=== PATIENT | male | born 1965 | race American Indian/Alaskan Native ===

== ENCOUNTER 2016-08-07 11:37 | Emergency (ER) | payer BC ==
[2016-08-07 11:38] VITALS: BMI 38.0
[2016-08-07 11:43] VITALS: RESP 18; TEMP 98; O2SAT 98
--- NOTE | 2016-08-07 12:55 | C.PDOC ---
History Of Present Illness 51 y/o male presents to the ED with complains of left foot pain. Pt states he hit left foot against object yesterday and has since had pain to 1st metatarsal joint area with redness. Pt denies history of arthritis or gout. Chief Complaint (Nursing): Lower Extremity Problem/Injury History Per: Patient History/Exam Limitations: no limitations Onset/Duration Of Symptoms: Hrs Current Symptoms Are (Timing): Still Present Severity: Moderate Recent travel outside of the [place]: No - Ankle/Foot Description Of Injury: Struck Against Object Past Medical History Reviewed: Historical Data, Nursing Documentation, Vital Signs Vital Signs: Last Vital Signs Temp 98.0 F 08/07/16 11:43 Pulse 85 08/07/16 13:13 Resp 18 08/07/16 13:13 BP 122/81 08/07/16 13:13 Pulse Ox 98 08/07/16 13:13 - Medical History PMH: Diabetes Family History: States: Unknown Family Hx Denies: [place], CAD - Social History Hx Tobacco Use: No Hx Alcohol Use: Yes Hx Substance Use: No - Immunization History Hx Tetanus Toxoid Vaccination: Yes Hx Influenza Vaccination: Yes Hx Pneumococcal Vaccination: No Review Of Systems Except As Marked, All Systems Reviewed And Found Negative. Constitutional: Negative for: Fever Musculoskeletal: Positive for: Other (pain to 1st metatarsal area) Neurological: Negative for: Weakness, Numbness Physical Exam - Physical Exam Appears: Non-toxic, No Acute Distress Skin: Warm, Dry, No Rash Head: Atraumatic, Normacephalic Extremity: Normal ROM, No Deformity (no obvious), Other (Tenderness, swelling and erythema to 1st MCP joint of left foot) Neurological/Psych: Oriented x3, Normal Speech, Normal Motor, Normal Sensation ED Course And Treatment O2 Sat by Pulse Oximetry: 98 (on room air) Pulse Ox Interpretation: Normal - Other Rad XR left foot X-Ray: Interpreted by Me, Viewed By Me Interpretation: some calcification seen, sesamoid bone. No fracture or dislocation - CT Scan/US Foot xray Other Rad Studies (CT/US): Read By Radiologist, Radiology Report Reviewed CT/US Interpretation: Accession No. : [id number]. Patient Name / ID : MARIO QUILES / [id number]. Exam Date : 08/07/2016 12:10:52 ( Approved ). Study Comment : Sex / Age : M / 51Y. Creator : CONOR BEYER. Dictator : Faraz Johnston MD. Food Safety Specialist : Manufacturing Tech : Faraz Johnston MD. Approver2 : Report Date : 08/07/2016 12:21:35. My Comment : . PROCEDURE: Left Foot Radiographs. HISTORY: hit 1st MTP joint yesterday, pain/swelling. COMPARISON: None. FINDINGS: BONES: No fracture. Small plantar surface calcaneal enthesophyte. Minor hallux valgus deformity with overgrowth of the head of the 1st metatarsal and mild DJD 1st MTP joint. Prominent soft tissues overlying head of the 1st metatarsal and 1st MCP joint. JOINTS: Mild degenerative changes tibiotalar articulation. SOFT TISSUES: Normal. OTHER FINDINGS: None. IMPRESSION: No fracture. Small plantar surface calcaneal enthesophyte. Minor hallux valgus deformity with overgrowth of the head of the 1st metatarsal and mild DJD 1st MTP joint. Prominent soft tissues overlying head of the 1st metatarsal and 1st MCP joint Medical Decision Making Medical Decision Making: XR left foot. Ortho shoe placed, Pt to follow up with scheduled direct sales consultant appointment next week. Disposition - Disposition Disposition: HOME/ ROUTINE Disposition Time: 12:56 Condition: STABLE Additional Instructions: Follow up with PMD and Dyer Assistant within 2-3 days. Return to ED if feel worse. Prescriptions: Ibuprofen [Motrin Tab] 600 mg PO Q8 #30 tab traMADol [Ultram] 50 mg PO Q6 #30 tab Instructions: Foot Contusion (ED) - Clinical Impression Clinical Impression: Foot contusion - PA / ABSTRACTOR / Resident Statement / has reviewed & agrees with the documentation as recorded. - Scribe Statement The provider has reviewed the documentation as recorded by the Shalom Quintanilla All medical record entries made by the Scribe were at my direction and personally dictated by me. I have reviewed the chart and agree that the record accurately reflects my personal performance of the history, physical exam, medical decision making, and the department course for this patient. I have also personally directed, reviewed, and agree with the discharge instructions and disposition.
--- NOTE | 2016-08-07 13:12 | RAD ---
PROCEDURE: Left Foot Radiographs. HISTORY: hit 1st MTP joint yesterday, pain/swelling COMPARISON: None. FINDINGS: BONES: No fracture. Small plantar surface calcaneal enthesophyte. Minor hallux valgus deformity with overgrowth of the head of the 1st metatarsal and mild DJD 1st MTP joint. Prominent soft tissues overlying head of the 1st metatarsal and 1st MCP joint JOINTS: Mild degenerative changes tibiotalar articulation SOFT TISSUES: Normal. OTHER FINDINGS: None. IMPRESSION: No fracture. Small plantar surface calcaneal enthesophyte. Minor hallux valgus deformity with overgrowth of the head of the 1st metatarsal and mild DJD 1st MTP joint. Prominent soft tissues overlying head of the 1st metatarsal and 1st MCP joint
[2016-08-07 13:15] VITALS: BP 122/81; PULSE 85
== END 2016-08-07 13:16 | disposition home or self-care (01) ==
LOC: C.ER 11:37
DX: S90.32XA Contusion of left foot, initial encounter (principal); W22.8XXA Striking against or struck by other objects, initial encounter; Y93.9 Activity, unspecified; Y92.9 Unspecified place or not applicable

== ENCOUNTER 2016-12-25 08:56 | Emergency (ER) | payer BC ==
[2016-12-25 08:57] VITALS: BMI 38.0
--- NOTE | 2016-12-25 09:28 | C.PDOC ---
History Of Present Illness 51 yr old male presents to the ER with complaints of bilateral groin pain for the past 2-3 weeks. Patient states the pain started after doing a strenuous workout. States the pain is worsened with movement and when he is stretches. Patient denies falls, nausea, vomiting, abdominal pain, dysuria, hematuria, back pain, weakness or numbness. Time Seen by Provider: 12/25/16 09:05 Chief Complaint (Nursing): Abdominal Pain History Per: Patient History/Exam Limitations: no limitations Onset/Duration Of Symptoms: Days (2-3 weeks) Past Medical History Reviewed: Historical Data, Nursing Documentation, Vital Signs Vital Signs: Last Vital Signs Temp 98.4 F 12/25/16 10:19 Pulse 89 12/25/16 10:19 Resp 20 12/25/16 10:19 BP 104/78 12/25/16 10:19 Pulse Ox 96 12/25/16 10:19 - Medical History PMH: Diabetes Family History: States: No Known Family Hx - Social History Hx Tobacco Use: No Hx Alcohol Use: No Hx Substance Use: No - Immunization History Hx Tetanus Toxoid Vaccination: Yes Hx Influenza Vaccination: No Hx Pneumococcal Vaccination: Yes Review Of Systems Except As Marked, All Systems Reviewed And Found Negative. Gastrointestinal: Negative for: Nausea, Vomiting, Abdominal Pain Genitourinary: Positive for: Other ((+) Bilateral groin pain). Negative for: Dysuria, Hematuria Musculoskeletal: Negative for: Back Pain Neurological: Negative for: Weakness, Numbness Physical Exam - Physical Exam Appears: Non-toxic, No Acute Distress Skin: Warm, Dry, No Rash Head: Atraumatic, Normacephalic Eye(s): bilateral: Normal Inspection Oral Mucosa: Moist Neck: Normal, Normal ROM, No Midline Cervical Tenderness, No Step Off Deformity , Supple Chest: Symmetrical, No Tenderness Cardiovascular: Rhythm Regular, No Friction Rub, No Murmur Respiratory: Normal Breath Sounds, No Rales, No Rhonchi, No Wheezing Gastrointestinal/Abdominal: Normal Exam, Soft, No Tenderness, No Guarding, No Rebound Back: Normal Inspection, No CVA Tenderness Extremity: No Calf Tenderness, Other ((+) Slight tenderness upon internal rotation of bilateral hips.) Neurological/Psych: Oriented x3, Normal Speech, Normal Motor, Normal Sensation Gait: Steady ED Course And Treatment O2 Sat by Pulse Oximetry: 98 (RA) Pulse Ox Interpretation: Normal Medical Decision Making Medical Decision Making: PLAN: * Motrin PO NOTE: * Patient instructed to take Motrin or Tylenol for pain. Instructed patient to rest for few days. * Patient is treated with Motrin PO in ED for pain. + * Patient is ambulatory in the ED with steady Disposition - Disposition Referrals: [facility] [Outside] Disposition: HOME/ ROUTINE Disposition Time: 10:14 Condition: GOOD Additional Instructions: Follow up with the medical doctor within 1-2 days, Return if worsened. Prescriptions: Naproxen [Naprosyn] 500 mg PO BID #20 tab Instructions: Muscle Strain (ED) Forms: [employer] (Jamaican) - Clinical Impression Clinical Impression: Muscle strain - PA / SKIVER UPPERS OR LININGS / Resident Statement MD/DO has reviewed & agrees with the documentation as recorded. - Scribe Statement The provider has reviewed the documentation as recorded by the Scribe Cass Coffman All medical record entries made by the Scribe were at my direction and personally dictated by me. I have reviewed the chart and agree that the record accurately reflects my personal performance of the history, physical exam, medical decision making, and the department course for this patient. I have also personally directed, reviewed, and agree with the discharge instructions and disposition.
[2016-12-25 10:20] VITALS: BP 104/78; PULSE 89; RESP 20; TEMP 98.4
[2016-12-25 11:09] VITALS: O2SAT 98
== END 2016-12-25 10:20 | disposition home or self-care (01) ==
LOC: C.ER 08:56
DX: S39.011A Strain of muscle, fascia and tendon of abdomen, initial encounter (principal); X58.XXXA Exposure to other specified factors, initial encounter; Y93.89 Activity, other specified

== ENCOUNTER 2017-05-15 22:40 | Emergency (ER) | payer BC ==
[2017-05-15 22:40] VITALS: BMI 38.0
[2017-05-15 22:52] VITALS: RESP 18; O2SAT 99
--- NOTE | 2017-05-15 23:18 | C.PDOC ---
Time Seen by Provider: 05/15/17 22:59 Chief Complaint (Nursing): Weakness/Neurological Deficit History Per: Patient Onset/Duration Of Symptoms: Days (2) Current Symptoms Are (Timing): Still Present Current Symptoms: Left facial weakness Severity: Moderate Additional History Per: Prior Records - Symptoms Of CVA Associated Symptoms: denies: Impaired Speech, Seizure Activity, New Vision Deficit(Left), New Vision Deficit(Right), Decreased Ability To Walk, New Confusion Character Of Deficits: Left: Weakness, Face: Weakness Recent Head Trauma: No Past Medical History Reviewed: Historical Data, Nursing Documentation, Vital Signs Vital Signs: Last Vital Signs Temp 98.3 F 05/15/17 22:49 Pulse 82 05/15/17 22:49 Resp 18 05/15/17 22:49 BP 128/87 05/15/17 22:49 Pulse Ox 99 05/15/17 22:49 - Medical History PMH: Diabetes Family History: States: Unknown Family Hx - Social History Hx Tobacco Use: No Hx Alcohol Use: No Hx Substance Use: No - Immunization History Hx Tetanus Toxoid Vaccination: Yes Hx Influenza Vaccination: No Hx Pneumococcal Vaccination: Yes Review Of Systems Except As Marked, All Systems Reviewed And Found Negative. Constitutional: Negative for: Fever, Weakness Eyes: Negative for: Vision Change ENT: Negative for: Ear Pain, Ear Discharge Cardiovascular: Negative for: Chest Pain Respiratory: Negative for: Shortness of Breath Gastrointestinal: Negative for: Nausea, Vomiting Skin: Negative for: Rash Neurological: Negative for: Numbness, Incoordination, Change in Speech, Confusion, Seizures, Altered Mental Status, Headache, Dizziness Physical Exam - Physical Exam Appears: Non-toxic, No Acute Distress Skin: Normal Color, Warm, Dry, No Rash Head: Atraumatic, Normacephalic Eye(s): bilateral: PERRL, EOMI Ear(s): Bilateral: Normal Throat: Normal Neck: Normal ROM, Supple Cardiovascular: Rhythm Regular Respiratory: Normal Breath Sounds, No Accessory Muscle Use Gastrointestinal/Abdominal: Soft, No Tenderness Back: No CVA Tenderness Extremity: Normal ROM Neurological/Psych: Oriented x3, Normal Speech, Normal Cognition, No Cerebellar Signs, Normal Sensation Gait: Steady Other Neurological Findings: Facial Palsy (left), No Forehead Sparing Extremity: Right: No Drift, Left: No Drift, Upper: No Drift, Lower: No Drift ED Course And Treatment O2 Sat by Pulse Oximetry: 99 Pulse Ox Interpretation: Normal Disposition Counseled Patient/Family Regarding: Diagnosis, Need For Followup, Rx Given - Disposition Referrals: Cm Guerrero MD [Staff Provider] - Disposition: HOME/ ROUTINE Disposition Time: 23:20 Condition: STABLE Additional Instructions: Follow up with your doctor within 1 week for further evaluation and treatment, including for checking Lyme disease titers. Return to the ER if you develop numbness, weakness in arms or legs, rash, fever, worsening of symptoms or if you have any other concerns. Prescriptions: Glycerin/Propylene Glycol [Artificial Tears Drops] 1 drop OP QID #1 bottle predniSONE [predniSONE Tab] 3 tab PO DAILY #15 tab Instructions: Siddiqui Palsy (ED) Forms: [employer] (Kinyarwanda) - Clinical Impression Clinical Impression: Left-sided Siddiqui's palsy
[2017-05-15 23:38] VITALS: BP 129/84; PULSE 78; TEMP 98.4
== END 2017-05-15 23:39 | disposition home or self-care (01) ==
LOC: C.ER 22:40
DX: G51.0 Bell's palsy (principal)

== ENCOUNTER 2017-05-16 13:56 | Emergency (ER) | payer BC ==
[2017-05-16 13:58] VITALS: BMI 38.0
[2017-05-16 15:23] VITALS: RESP 20; TEMP 98.5
--- NOTE | 2017-05-16 16:59 | CT ---
PROCEDURE: CT HEAD WITHOUT CONTRAST. HISTORY: Left facial weakness COMPARISON: No prior study available for comparison TECHNIQUE: Axial computed tomography images were obtained through the head/brain without intravenous contrast. Radiation dose: Total exam DLP = 982.82 mGy-cm. This CT exam was performed using one or more of the following dose reduction techniques: Automated exposure control, adjustment of the mA and/or kV according to patient size, and/or use of iterative reconstruction technique. FINDINGS: HEMORRHAGE: No acute parenchymal, subarachnoid nor extra-axial hemorrhage. BRAIN: No evidence large acute infarct. No obvious parenchymal nor extra-axial mass or collection seen on this noncontrast study. The possibility of hyperacute infarct cannot be excluded on this exam and if there is any concern consider followup emergent MRI. Mild age-appropriate volume loss. Mild vascular calcifications VENTRICLES: Unremarkable. No hydrocephalus. CALVARIUM: Unremarkable. PARANASAL SINUSES: Unremarkable as visualized. No significant inflammatory changes. MASTOID AIR CELLS: Unremarkable as visualized. No inflammatory changes. OTHER FINDINGS: None. IMPRESSION: No acute intracranial hemorrhage. No evidence of large acute infarct however the possibility of a small hyperacute infarct cannot excluded and therefore additional studies could be performed further if further evaluation required as detailed above.
--- NOTE | 2017-05-16 17:16 | C.PDOC ---
History Of Present Illness 52 y/o male presents to the ER complaining of a "rumbling" sensation in his ears and twitching on the left side of his face. Patient states that he was seen in [facility] yesterday and he was diagnosed with Siddiqui's Palsy. He was given a prescription for predniSONE. He states he has mild left facial paralysis for 3 days and he decided to come back to the ER today because of the sensation in his ears and twitching on his face. Patient denies having headache , dizziness, visual changes, neck pain, chest pain, palpitations, and fever. Time Seen by Provider: 05/16/17 15:21 Chief Complaint (Nursing): ENT Problem History Per: Patient History/Exam Limitations: no limitations Onset/Duration Of Symptoms: Hrs Current Symptoms Are (Timing): Still Present Severity: Moderate Past Medical History Reviewed: Historical Data, Nursing Documentation, Vital Signs Vital Signs: Last Vital Signs Temp 98.5 F 05/16/17 15:19 Pulse 97 H 05/16/17 17:17 Resp 20 05/16/17 17:17 BP 128/73 05/16/17 17:17 Pulse Ox 97 05/16/17 18:06 - Medical History PMH: Diabetes Denies: HTN, Hypercholesterolemia, Hyperthyroidism Surgical History: No Surg Hx Family History: States: No Known Family Hx - Social History Hx Tobacco Use: No Hx Alcohol Use: Yes Hx Substance Use: No - Immunization History Hx Tetanus Toxoid Vaccination: Yes Hx Influenza Vaccination: No Hx Pneumococcal Vaccination: Yes (2017) Review Of Systems Except As Marked, All Systems Reviewed And Found Negative. Constitutional: Negative for: Fever, Chills Eyes: Negative for: Vision Change ENT: Positive for: Other (rumbling sensation in ears) Cardiovascular: Negative for: Chest Pain, Palpitations Musculoskeletal: Negative for: Neck Pain Neurological: Positive for: Other (twitching on left side of face). Negative for: Weakness, Numbness, Headache, Dizziness Physical Exam - Physical Exam Appears: Non-toxic, No Acute Distress, Other (anxious, comfortable) Skin: Normal Color, Warm Head: Atraumatic, Normacephalic Eye(s): bilateral: Normal Inspection, PERRL, EOMI Ear(s): Bilateral: Normal Nose: Normal Oral Mucosa: Moist Neck: Supple Chest: Symmetrical Cardiovascular: Rhythm Regular Respiratory: Normal Breath Sounds, No Accessory Muscle Use, No Rales, No Rhonchi , No Wheezing Extremity: Normal ROM Neurological/Psych: Oriented x3, Normal Speech, Normal Cognition, Normal Motor, Normal Sensation, Other (mild left facial droop,mildly decreased ability to close left eye, mild decrease in forehead wrinkling) Gait: Steady ED Course And Treatment O2 Sat by Pulse Oximetry: 97 (RA) Pulse Ox Interpretation: Normal - CT Scan/US No standard instances Other Rad Studies (CT/US): Read By Radiologist CT/US Interpretation: PROCEDURE: CT HEAD WITHOUT CONTRAST. HISTORY: Left facial weakness. COMPARISON: No prior study available for comparison. TECHNIQUE: Axial computed tomography images were obtained through the head/ brain without intravenous contrast. Radiation dose: Total exam DLP = 982.82 mGy-cm. This CT exam was performed using one or more of the following dose reduction techniques: Automated exposure control, adjustment of the mA and/or kV according to patient size, and/or use of iterative reconstruction technique. FINDINGS: HEMORRHAGE: No acute parenchymal, subarachnoid nor extra-axial hemorrhage. BRAIN: No evidence large acute infarct. No obvious parenchymal nor extra-axial mass or collection seen on this noncontrast study. The possibility of hyperacute infarct cannot be excluded on this exam and if there is any concern consider followup emergent MRI. Mild age-appropriate volume loss. Mild vascular calcifications. VENTRICLES: Unremarkable. No hydrocephalus. CALVARIUM: Unremarkable. PARANASAL SINUSES: Unremarkable as visualized. No significant inflammatory changes. MASTOID AIR CELLS: Unremarkable as visualized. No inflammatory changes. OTHER FINDINGS: None. IMPRESSION: No acute intracranial hemorrhage. No evidence of large acute infarct however the possibility of a small hyperacute infarct cannot excluded and therefore additional studies could be performed further if further evaluation required as detailed above. Progress Note: Head CT was negative. Patient has been discharged and told to follow up with PCP in 1-2 days. Disposition Counseled Patient/Family Regarding: Studies Performed, Diagnosis, Need For Followup - Disposition Referrals: Donavan Shah MD [Staff Provider] - Disposition: HOME/ ROUTINE Disposition Time: 17:15 Condition: STABLE Additional Instructions: FOLLOW UP WITH YOUR DOCTOR/CLINIC IN 1-2 DAYS FOLLOW UP WITH NEUROLOGY WITHIN 1 WEEK IF SYMPTOMS PERSIST RETURN TO ER IF SYMPTOMS WORSEN Instructions: Siddiqui Palsy (ED) Forms: [employer] (Bengali) Print Language: NAMIBIAN - Clinical Impression Clinical Impression: Left-sided Siddiqui's palsy - Scribe Statement The provider has reviewed the documentation as recorded by the Scribe Aidan Flood Provider Attestation: All medical record entries made by the Scribe were at my direction and personally dictated by me. I have reviewed the chart and agree that the record accurately reflects my personal performance of the history, physical exam, medical decision making, and the department course for this patient. I have also personally directed, reviewed, and agree with the discharge instructions and disposition.
[2017-05-16 17:18] VITALS: BP 128/73; PULSE 97
[2017-05-16 18:00] VITALS: O2SAT 97
== END 2017-05-16 17:25 | disposition home or self-care (01) ==
LOC: C.ER 13:56
DX: G51.0 Bell's palsy (principal); E11.9 Type 2 diabetes mellitus without complications

== ENCOUNTER 2017-08-20 17:34 | Emergency (ER) | payer BC ==
[2017-08-20 17:34] VITALS: BMI 38.0
[2017-08-20 17:57] VITALS: BP 156/88; PULSE 69; TEMP 98.4; O2SAT 98
--- NOTE | 2017-08-20 19:38 | C.PDOC ---
History Of Present Illness 52 yo male w/PMHx of NIDDM, glaucoma, chronic neck pain, GERD come in for evaluation of throat discomfort gradually developed for past 2 weeks. Pt sts, " feels like something in my throat, ball, unable to swallow". Pt sts, tried Zyrtec, Nexium without significant improvement. Pt admits, chronic Right sided neck pain, "await for injection to neck for pain" Otherwise, pt denies fever, chills, headache, dizziness, weakness, drooling, dysphagia, dyspnea, CP, SOB, wheezing, abd. pain, V/D, food intolerance, denies any other active complaints. Ambulate to Ed for evaluation, not in any apparent distress. Time Seen by Provider: 08/20/17 19:21 Chief Complaint (Nursing): ENT Problem History Per: Patient Past Medical History Reviewed: Historical Data, Nursing Documentation, Vital Signs Vital Signs: Last Vital Signs Temp 98.4 F 08/20/17 17:55 Pulse 69 08/20/17 17:55 Resp 20 08/20/17 20:59 BP 156/88 H 08/20/17 17:55 Pulse Ox 98 08/20/17 19:55 - Medical History PMH: Diabetes, GERD, Chronic Pain Denies: HTN, Hypercholesterolemia, Hyperthyroidism Family History: States: Unknown Family Hx - Social History Hx Tobacco Use: No Hx Alcohol Use: Yes Hx Substance Use: No - Immunization History Hx Tetanus Toxoid Vaccination: Yes Hx Influenza Vaccination: No Hx Pneumococcal Vaccination: Yes (2017) Review Of Systems Except As Marked, All Systems Reviewed And Found Negative. Constitutional: Negative for: Fever, Chills ENT: Positive for: Throat Pain. Negative for: Ear Discharge, Nose Discharge, Throat Swelling Cardiovascular: Negative for: Chest Pain, Palpitations, Edema, Light Headedness Respiratory: Negative for: Cough, Shortness of Breath, Wheezing Gastrointestinal: Negative for: Nausea, Vomiting, Abdominal Pain, Diarrhea Genitourinary: Negative for: Dysuria Musculoskeletal: Positive for: Neck Pain Skin: Negative for: Rash Neurological: Negative for: Weakness, Numbness, Altered Mental Status, Headache , Dizziness Physical Exam - Physical Exam Appears: Well, Non-toxic, No Acute Distress Skin: Normal Color, Warm, Dry Head: Normacephalic Eye(s): bilateral: PERRL Nose: No Flaring, No Discharge Oral Mucosa: Moist, No Drooling, Other (scant clear post-nasal drip) Tongue: Normal Appearing Throat: No Erythema, No Exudate, No Drooling, Other (uvula midline, no edema.) Neck: Trachea Midline, No Midline Cervical Tenderness, No Step Off Deformity, Supple, Other ((+) mild tenderness over Right trapezium muscle with mild spasm.) Cardiovascular: Rhythm Regular, No Murmur, No JVD Respiratory: No Decreased Breath Sounds, No Accessory Muscle Use, No Stridor, No Wheezing Gastrointestinal/Abdominal: Soft, No Tenderness, No Distention, No Guarding Back: No CVA Tenderness Extremity: Normal ROM, No Pedal Edema, No Deformity, No Swelling Neurological/Psych: Oriented x3, Normal Speech ED Course And Treatment O2 Sat by Pulse Oximetry: 98 Pulse Ox Interpretation: Normal Progress Note: On re-evaluation, pt is awake, comfortable, not in any apparent distress. Afebrile, hemodynamicaly stable. NOn-toxic, tolerate Po well in ED. PulsEOx 98% RA. neck: Supple, (-) JVD, (-) carotid bruits B/L. ENT: no acute findings. Lungs: CTA B/L, BS equal B/L. ABd: benign, (-) guarding, (-) rebound. neurologicaly intact. Pt has clinical findings c/w throat discomfort , post-nasal drip, chronic Right sided neck pain. Pt Advised on course of ds. Ref. to f/u with PMD in 2-3 days for re-eval. retrun to ED if any worsening or new changes. Disposition Counseled Patient/Family Regarding: Diagnosis, Need For Followup, Rx Given - Disposition Referrals: [facility] [Outside] Disposition: HOME/ ROUTINE Disposition Time: 19:38 Condition: STABLE Additional Instructions: Take Benadryl 50 mg at night time once daily Take muscle relaxant as need for pain Follow up with PMD in 2-3 days for re-evaluation. return to ED if any worsening or new changes. Prescriptions: Gabapentin [Neurontin] 300 mg PO QN #10 cap Methocarbamol [Robaxin] 500 mg PO TID #14 tab Instructions: Sore Throat in Adults, Cervical Muscle Strain Forms: [employer] (Kazakh) - Clinical Impression Clinical Impression: Throat pain, Cervical strain
[2017-08-20 21:01] VITALS: RESP 20
== END 2017-08-20 20:00 | disposition home or self-care (01) ==
LOC: C.ER 17:34
DX: S16.1XXA Strain of muscle, fascia and tendon at neck level, initial encounter (principal); X58.XXXA Exposure to other specified factors, initial encounter; R07.0 Pain in throat